=== PATIENT | female | born 1970 | race Caucasian/White ===

== ENCOUNTER 2016-05-09 12:44 | Observation (INO) | payer OTHER ==
[2016-05-09] MEDS ORDERED: NS 1,000 ML IV PRN (13:39)
[2016-05-09] MEDS ORDERED: SODIUM CHLORIDE 0.9% INJ ONE (13:41)
[2016-05-09] MEDS ORDERED: PROTONIX IV ONE (13:41)
[2016-05-09] MEDS ORDERED: MORPHINE IV ONE (13:41)
[2016-05-09] MEDS ORDERED: ZOFRAN IV ONE (13:41)
[2016-05-09 14:26] LABS: INR 1.03; PROTIME 10.9 Seconds (9.2-11.7); PTT 28.5 Seconds (22.0-36.0)
[2016-05-09 14:45] LABS: MANUAL DIFF NEEDED? NO
[2016-05-09 14:48] LABS: BASO% 0.1 % (0.0-0.8); EOS# 0.09 X1000 (0.0-0.7); EOS% 1.2 % (0.0-10.0); HEMATOCRIT 41.6 % (37.0-47.0); HEMOGLOBIN 13.8 g/dL (12.0-16.0); LYMPH# 2.24 X1000 (1.2-3.4); LYMPH% 29.9 % (20.5-51.1); MCH 30.5 PG (27-31); MCHC 33.2 g/dL (33-37); MONO# 0.59 X1000 (0.11-0.59); MONO% 7.9 % (1.7-9.3); MPV 10.4 FL (7.4-10.4); NEUT% 60.9 % (42.2-75.2); PLT 206 X1000 (130-400); RBC 4.52 XMIL (4.2-5.4)
[2016-05-09 15:11] LABS: AGAP 13; ALBUMIN 4.2 g/dL (3.5-5.0); ALKALINE PHOSPHATASE 57 U/L (32-104); AMYLASE 42 U/L (20-200); BUN 8 mg/dL (8-22); CALCIUM 9.7 mg/dL (8.8-10.2); CHLORIDE 96 mmol/L (98-107); COSMO 269; GOT 25 U/L (10-30); GPT 27 U/L (10-36); LIPASE 23 U/L (13-60); POTASSIUM 3.8 mmol/L (3.5-5.1); SODIUM 136 mmol/L (136-145); TCO2 27 mmol/L (25-35); TOTAL BILIRUBIN 0.39 mg/dL (0.20-1.00)
--- NOTE | 2016-05-09 15:49 | PROVIDER DOCUMENTATION ---
HPI-Abdominal Pain/GI Problem - General Chief Complaint: Abdominal Pain Stated Complaint: ABD PAIN/COLON Time Seen by Provider: 05/09/16 13:39 Source: patient Allergies/Adverse Reactions: Patient Allergies Allergy/AdvReac Type Severity Reaction Status Date / Time Sulfa (Sulfonamide Allergy Severe RASH Verified 05/09/16 13:33 Antibiotics) morphine Allergy Mild RASH Verified 05/09/16 13:33 latex Allergy Unknown BLISTERS Verified 05/09/16 13:33 NSAIDS (Non-Steroidal Allergy Unknown Unknown Verified 05/09/16 13:33 Anti-Inflamma adhesive Allergy BLISTERS Verified 05/09/16 13:33 codeine Allergy RASH Verified 05/09/16 13:33 Penicillins Allergy Unknown Verified 05/09/16 13:33 prednisone Allergy RASH Verified 05/09/16 13:33 Home Medications: Home Medication List Medication Instructions Recorded Confirmed Last Taken Type Esomeprazole Magnesium [Nexium] 40 mg PO DAILY 03/10/12 05/09/16 05/09/16 History Alprazolam [Xanax] 0.5 mg PO PRN PRN 06/11/14 05/09/16 3 Days Ago History Estrogens, Conjugated [Premarin] 1.25 mg PO DAILY 06/11/14 05/09/16 3 Days Ago History Nebivolol HCl [Bystolic] 25 mg PO DAILY 06/11/14 05/09/16 3 Days Ago History Lactobacillus Rhamnosus GG 1 each PO DAILY 01/23/16 05/09/16 3 Days Ago History [Probiotic] Tramadol [Ultram] 50 mg PO Q8HR PRN 01/23/16 05/09/16 01/22/16 History Ondansetron HCl [Zofran] 4 mg PO Q4H PRN PRN #10 tablet 01/24/16 05/09/16 Unknown Rx - History of Present Illness-ABD Nature of Presenting Problems: Pt is a 46 y/o F c chief complaint of abd pain, bloating, constipation, nausea x 1 week. Pt has an extensive GI hx that includes bowel resection for diverticulitis and development of a hernia at the laparotomy incision. Pt is followed by Dr. Ho (GI) and Dr. Velázquez (General Surgery). She contacted Dr. Ho and he advised her to go the ER. He met her when she arrived here and requested that I do an abd pain work-up including a CT scan and labs. He contacted Dr. Velázquez who agreed to admit her after the ER workup was completed. On arrival, pt is in minimal distress. She states her last bm was yesterday and was pencil thin. Review of Systems - Adult - REVIEW OF SYSTEMS - ADULT Constitutional: reports: no symptoms reported. denies: chills, fatique Eyes: reports: no symptoms reported. denies: blurred vision, double vision Ears, Nose, Mouth & Throat: reports: no symptoms reported. denies: ear pain, nose pain, throat pain Cardiovascular: reports: no symptoms reported. denies: chest pain, orthopnea Respiratory: reports: no symptoms reported. denies: cough, shortness of breath Gastrointestinal: reports: abdominal pain, constipation, nausea, poor appetite Genitourinary: reports: no symptoms reported. denies: dysuria, frequent UTI's Musculoskeletal: reports: no symptoms reported. denies: bone pain, joint pain, joint swelling Integumentary: reports: no symptoms reported. denies: hives, itching, rash Neurological: reports: no symptoms reported. denies: numbness, paresthesia Psychiatric: reports: no symptoms reported. denies: anxiety, emotional problems Endocrine: reports: no symptoms reported. denies: cold intolerance, heat intolerance Hematologic/Lymphatic: reports: no symptoms reported. denies: blood clots, low blood count Allergic/Immunologic: reports: no symptoms reported. denies: allergic reactions , food allergy All Other Systems: Reviewed and Negative Past History - Adult - PAST MEDICAL HISTORY-ADULT Review of Records: reports: Old Records Reviewed, Nursing Assessment Review, Medications Reviewed, Social history reviewed & non-contributory. Major Childhood Illnesses: reports: denies history Cardiovascular: reports: denies history Respiratory: reports: denies history Gastrointestinal: reports: colitis, diverticulosis, inflammatory bowel disease, other (multiple bowel surgeries) Obstetrical/Gynecological: reports: denies history Genitourinary: reports: denies history Musculoskeletal: reports: denies history Neurological: reports: denies history Psychiatric: reports: anxiety, ptsd Endocrine/Immune: reports: denies history Other Conditions: reports: denies history - PRIOR SURGERIES/PROCEDURES Surgical/Procedure History: reports: hernia repair, bowel surgery (colon resection ) - IMMUNIZATION STATUS Childhood Immunizations: See Nurse Assessment Flu Vaccine: See Nurse Assessment - FAMILY HISTORY Family History: reviewed, not pertinent - SOCIAL HISTORY Smoking: denies Substance Use: none/never Alcohol Use Frequency: never Physical Exam-General - PHYSICAL EXAM-ADULT Initial Vital Signs Reviewed: Yes - CONSTITUTIONAL General Appearance: alert, mild distress - EYES Eyes: PERRL/EOMI, pink conjunctivae - HEAD, EARS, NOSE, MOUTH & THROAT HENMT: normocephalic/atraumatic, moist mucous membranes, normal ENT inspection - NECK Neck: non-tender, full range of motion, supple - RESPIRATORY Respiratory: chest non-tender, lungs clear, normal breath sounds - CARDIOVASCULAR Cardiovascular: normal peripheral pulses, regular rate, rhythm, no edema - GASTROINTESTINAL (ABDOMEN) Abdominal Exam: normal bowel sounds, soft, guarding (RLQ), tenderness (diffuse generalized tenderness). negative: rebound - MUSCULOSKELETAL Back Exam: normal inspection, no CVA tenderness Extremity: normal range of motion, non-tender, normal gait - SKIN Integumentary: normal color, normal turgor, warm/dry - NEUROLOGIC Neurologic: grossly normal, no motor/sensory deficits - PSYCHIATRIC Psych/Mental Status: normal mood/affect, normal thought content, normal thought process, oriented x 3 Progress - PLAN OF CARE/RESULTS Progress/Plan/Lab Results: Orders Category Date Time Status Saline Loc DIRECTED Care 05/09/16 13:39 Active NPO Diet 05/09/16 13:[address] ABD/PELVIS W/ IV CONT ONLY [CT] Stat Exams 05/09/16 13:40 Taken AMYLASE [CHEM] Stat Lab 05/09/16 14:00 Completed CBC WITH ELECTRONIC DIFF [HEME] Stat Lab 05/09/16 14:00 Completed COMPREHENSIVE METABOLIC PANEL [CHEM] Stat Lab 05/09/16 14:00 Completed LIPASE [CHEM] Stat Lab 05/09/16 14:00 Completed OCCULT BLOOD NON-FECES Stat Lab 05/09/16 13:39 Uncollected OCCULT BLOOD SCREENING [STOOL] Stat Lab 05/09/16 13:39 Uncollected TEST-URINE [PREG] Stat Lab 05/09/16 13:32 Completed PROTIME WITH INR [COAG] Stat Lab 05/09/16 14:00 Completed PTT [COAG] Stat Lab 05/09/16 14:00 Completed TYPE & SCREEN [BBK] Stat Lab 05/09/16 14:00 Completed URINALYSIS W/POSS RFLX CULT [URINALYSIS] Stat Lab 05/09/16 13:56 Ordered 0.9% Sodium Chloride Inj [Ns] 1,000 ml Med 05/09/16 13:39 Active IV 125 mls/hr Morphine Med 05/09/16 13:41 Discontinued 4 mg IV NOW ONE Ondansetron [Zofran] Med 05/09/16 13:41 Discontinued 4 mg IV NOW ONE Pantoprazole [Protonix] Med 05/09/16 13:41 Discontinued 40 mg IV NOW ONE Sodium Chloride 0.9% Med 05/09/16 13:41 Discontinued 10 ml INJ NOW ONE Laboratory Tests 05/09/16 05/09/16 05/09/16 13:32 14:00 14:00 WBC RBC Hgb Hct MCV MCH MCHC RDW Std Deviation Plt Count MPV Immature Gran % (Auto) Neut % (Auto) Lymph % (Auto) [place] % (Auto) Eos % (Auto) Baso % (Auto) Immature Gran # (Auto) Neut # (Auto) Lymph # (Auto) [place] # (Auto) Eos # (Auto) Baso # (Auto) PT 10.9 INR 1.03 PTT (Actin FS) 28.5 Sodium Potassium Chloride Carbon Dioxide Anion Gap BUN Creatinine Estimated GFR/1.73 m2 BUN/Creatinine Ratio Glucose Calculated Osmolality Calcium Total Bilirubin AST ALT Alkaline Phosphatase Total Protein Albumin Globulin Albumin/Globulin Ratio Amylase Lipase Urine Test NEGATIVE Blood Type O POSITIVE Antibody Screen NEGATIVE 05/09/16 05/09/16 14:00 14:00 WBC 7.48 RBC 4.52 Hgb 13.8 Hct 41.6 MCV 92.0 MCH 30.5 MCHC 33.2 RDW Std Deviation 13.0 Plt Count 206 MPV 10.4 Immature Gran % (Auto) 0.0 Neut % (Auto) 60.9 Lymph % (Auto) 29.9 [place] % (Auto) 7.9 Eos % (Auto) 1.2 Baso % (Auto) 0.1 Immature Gran # (Auto) 0.00 Neut # (Auto) 4.55 Lymph # (Auto) 2.24 [place] # (Auto) 0.59 Eos # (Auto) 0.09 Baso # (Auto) 0.01 PT INR PTT (Actin FS) Sodium 136 Potassium 3.8 Chloride 96 L Carbon Dioxide 27 Anion Gap 13 BUN 8 Creatinine 0.7 Estimated GFR/1.73 m2 > 60 BUN/Creatinine Ratio 11 Glucose 84 Calculated Osmolality 269 Calcium 9.7 Total Bilirubin 0.39 AST 25 ALT 27 Alkaline Phosphatase 57 Total Protein 7.0 Albumin 4.2 Globulin 2.8 Albumin/Globulin Ratio 1.5 Amylase 42 Lipase 23 Urine Test Blood Type Antibody Screen Vital Signs - 24 hr 05/09/16 13:12 Temperature 97.9 F Pulse Rate 63 Respiratory 18 Rate Blood Pressure 108/69 O2 Sat by Pulse 100 Oximetry - CT/MRI 1 CT Study: Abdomen, Pelvis Impression: Abnormal (multiple diverticulae, post surgical changes, no diverticulitis - radiology) - CONSULTS/PCP/HOSPITALIST Notification #1 *Consult/PCP/Hospitalist*: Dr. Ho (GI) Time Discussed: 12:57 Reason/Comments: At bedside. Agreed c plan of care and workup. Will discuss c Dr. Velázquez. #2 Consult: Dr. Velázquez (General Surgery) Time Discussed: 15:48 Reason/Comments: At bedside. Will admit pt to his service. Departure - Departure Time of Disposition Order: 15:47 DIAGNOSIS: Abdominal pain Qualifiers: Abdominal location: generalized Qualified Code(s): R10.84 - Generalized abdominal pain Disposition: ADMITTED INPATIENT 09 Certified Medical Emergency: Emergent Condition: Stable Attestation - Physician/ JOSE Attestation Patient care was provided by Advanced Practice Provider:: Yes Advanced Practice Provider:: Terry Soriano Advanced Practice Provider documentation review:: The Mid-level provider documentation, treatment plan and medical decision making was reviewed by the physician who agrees with all treatment and medical decision making by the MLP.
--- NOTE | 2016-05-09 16:00 | CONSULTATION ---
DATE OF CONSULTATION: 05/09/2016 REASON FOR CONSULTATION: For evaluation of this patient with abdominal pain. HISTORY OF PRESENT ILLNESS: This is a 46-year-old lady who is known to me for years. 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 Bella. This was a few years ago. Subsequently, the patient had multiple episodes of abdominal pain for which she has undergone surgeries. One of them was years ago by Dr. Bella, another one was by Dr. Glover, and there was an incisional hernia also operated by Dr. Glover. The patient saw me about a week ago in the office. At that time, she complained of abdominal pain mainly in the epigastric area. There was nausea with some vomiting, but she thought that she had diverticulitis at that time. She took 1 Flagyl which was left over from a previous prescription, and then came to the office. At that time, on examination and taking history, I decided that is may not be diverticulitis. There was a previous CT scan done at the [facility] Emergency room a week before that did not show any evidence of acute diverticulitis. The patient was scheduled for a HIDA scan to be done later next week. However, this morning she called me and complained that there is swelling in the upper abdomen and at the area where there was an umbilical hernia. It was bulging out and she felt as though the pain was much more severe, and I asked her to come to the emergency room for evaluation. She is being evaluated in the emergency room. She had some nausea and vomiting this morning and she also said that she was having only pencil-thin stools. Last night, she was passing gas. She thinks the abdomen is much more distended than before. PAST MEDICAL HISTORY: 1. Colon cancer. 2. Diverticulosis of the colon. 3. Gastroesophageal reflux disease. PAST SURGICAL HISTORY: 1. section. 2. Hysterectomy. 3. Right hemicolectomy. 4. Colon resection about 4 years ago. 5. Colon resection again 3 years ago. SOCIAL HISTORY: Patient does not abuse alcohol or tobacco. She lives with her . FAMILY HISTORY: Her father had brain cancer. There is history of hypertension and psychiatric illness in the family. HEALTH MAINTENANCE: I had done a few colonoscopies for her in the past and they only showed postoperative changes and diverticulosis of the colon, most significant on the left side. Her colon was cancer was in 2007. REVIEW OF SYSTEMS: The patient has significant abdominal pain, but there is no fever or chills. She also has nausea and vomiting with distention of the abdomen. She has no cough, chest pain, or headache. Feels panicked at this point. She thinks that there is some impending disaster happening to her. She also has pencil-thin stools, which is not unusual for her. The pain is mainly in the epigastric area and around the umbilicus. PHYSICAL EXAMINATION: General: The patient is alert, oriented x3. Seems to be distressed. Vital Signs: Temperature is 97.9 degrees, pulse rate is 63, her blood pressure is 108/69, respiratory rate is 18. Skin: Warm and dry. Mucous membranes are moist. Neck: Supple. There is no thyromegaly. Cardiac: Both heart sounds are heard. Rhythm is regular. No murmur. Lungs: Clear to percussion and auscultation. Abdomen: Soft, not really distended much, although she states that it is more distended. There is a small umbilical hernia present with scar in the midline with very poor anterior abdominal muscle tone. When she coughs, there is a prominent swelling in the epigastric area just above the umbilicus. Bowel sounds are high pitched and cooing, suggestive of possible partial small-bowel obstruction. Extremities: Free of any edema. RECOMMENDATIONS: The ER physician and nurse practitioner Terry Soriano have ordered IV fluids. The plan is to get a CT scan of the abdomen and pelvis, and also get routine blood work. I have spoken with her about choosing a surgery. She prefers to see Dr. Velázquez because recently Dr. Velázquez has operated on her thrombosed hemorrhoids. I discussed with Dr. Velázquez about her situation. She might need to be hospitalized for a couple of days with possible diagnosis of partial small-bowel obstruction. If she needs surgery, he will be the one doing surgery for her, the patient's wish. I discussed the case with Dr. Velázquez and he will be taking care of her. I will be standing by.
[2016-05-09 16:23] LABS: URINE CULTURE NEEDED? NO; URINE MICRO REVIEW NEEDED? NO; URINE SOURCE CLEAN CATCH
[2016-05-09 16:53] LABS: BILIRUBIN URINE NEGATIVE (NEGATIVE); BLOOD URINE NEGATIVE (NEGATIVE); COLOR YELLOW; GLUCOSE URINE NEGATIVE (NEGATIVE); LEUKOCYTES URINE NEGATIVE (NEGATIVE); NITRITE URINE NEGATIVE (NEGATIVE); PH URINE 5.5; PROTEIN URINE NEGATIVE (NEGATIVE); SP GRAVITY URINE 1.008; TURBIDITY URINE CLEAR (CLEAR); UROBILINOGEN URINE NORMAL (NORMAL)
[2016-05-09 16:54] LABS: UR EPITHELIAL CELLS <10 /HPF (<10); URINE BACTERIA NEGATIVE /HPF; URINE RBC <10 /HPF (<10); URINE WBC <10 /HPF (<10)
--- NOTE | 2016-05-09 17:32 | Diag Imaging Result Document ---
PROCEDURE NAME: CT ABD/PELVIS W/ IV CONT ONLY - 05/09/2016 CT ABDOMEN AND PELVIS WITH IV CONTRAST: FINDINGS: Exam performed with intravenous contrast only per request of the referring provider. A dose reduction protocol was used. Compared with previous exam from [facility] dated 04/16/2016. There are no substantial abnormalities of the liver, spleen, adrenal glands, or pancreas identified. There are no calcified gallstones or pericholecystic inflammation seen. The bilateral kidneys enhance homogeneously. There is no hydronephrosis. There are no substantially enlarged lymph nodes identified. There are postsurgical changes of right hemicolectomy. There is no evidence of bowel obstruction. There are multiple colonic diverticula. There is no inflammation identified to indicate diverticulitis. There is no abscess seen. There is no free air. Images of the pelvis otherwise show postsurgical changes of hysterectomy. There is no abnormal pelvic mass or fluid collection identified. IMPRESSION: 1. Postsurgical changes of right hemicolectomy. 2. Multiple diverticula along remaining colon. No evidence of diverticulitis. No abscess. No free air. 3. No bowel obstruction.
[2016-05-09] MEDS ORDERED: D5 1/2 NS + KCL 20 MEQ 1,000 ML IV SCH (18:00)
[2016-05-09] MEDS ORDERED: ZOFRAN IV PRN (18:10)
[2016-05-09] MEDS ORDERED: DULCOLAX PR ONE (18:15)
[2016-05-09] MEDS ORDERED: MILK OF MAGNESIA PO ONE (18:15)
[2016-05-09] MEDS ORDERED: LEVAQUIN 500 MG/D5W 100 ML IV SCH (18:30)
[2016-05-09 21:48] VITALS: BP 94/52
[2016-05-10] MEDS ORDERED: GOLYTELY PO ONE (09:00)
== END 2016-05-10 00:24 | disposition left against medical advice (07) ==
LOC: ED 12:44 → 4N 17:17
PROVIDERS: ADMIT Surgery; ATTEND Surgery
DX: R10.13 Epigastric pain (principal); K57.30 Diverticulosis of large intestine without perforation or abscess without bleeding; Z85.038 Personal history of other malignant neoplasm of large intestine; Z90.49 Acquired absence of other specified parts of digestive tract; Z87.19 Personal history of other diseases of the digestive system; K42.9 Umbilical hernia without obstruction or gangrene; R19.06 Epigastric swelling, mass or lump; R11.2 Nausea with vomiting, unspecified; K59.00 Constipation, unspecified; Z79.899 Other long term (current) drug therapy; Z80.8 Family history of malignant neoplasm of other organs or systems; Z82.49 Family history of ischemic heart disease and other diseases of the circulatory system; Z81.8 Family history of other mental and behavioral disorders
CPT/HCPCS: 74177; 80053; 81001; 81025; 82150; 83690; 85025; 85610; 85730; 86850; 86900; 86901; 96374; 96375; C9113; J2405; J3480; J7030; Q9967; S0164